=== PATIENT | female | born 1975 | race American Indian/Alaskan Native ===

== ENCOUNTER 2019-07-10 09:57 | Emergency (ER) | payer SELFPAY ==
[2019-07-10 10:13] VITALS: BP 135/73
--- NOTE | 2019-07-10 12:24 | Emergency Department Report ---
Blank Doc - Documentation Documentation: As I entered the room, the patient was not present. I did not see or examine the patient. Brandon manual arts therapist stated patient had left before bring the patient back. Brandon has been notified to have the patient be contacted to bring the patient back for further evaluation and treatment. Patient was not seen or examined by me at this time.
== END 2019-07-10 12:30 | disposition left against medical advice (07) ==
LOC: ED 09:57
DX: R11.0 Nausea (principal); Z53.21 Procedure and treatment not carried out due to patient leaving prior to being seen by health care provider